=== PATIENT | female | born 1935 | race Caucasian/White ===

== ENCOUNTER 2020-06-04 14:33 | Inpatient (IN) | payer MEDICARE, OTHER ==
[2020-06-04 15:01] LABS: BASO # 0.1 (0.0-0.2); BASO % 0.9 % (0.0-2.0); EOS % 0.4 % (0-4.0); GRAN # 6.9 (1.4-6.5); GRAN % 66.4 % (42.2-75.2); HEMOGLOBIN 14.6 g/dl (12.5-16.0); LYMPH # 2.7 (1.2-3.4); LYMPH % 26.1 % (20.0-51.0); MEAN CELL VOLUME 92 fl (80.0-100.0); MEAN CORPUSCULAR HEMOGLOBIN 30 pg (27.0-31.0); MEAN CORPUSCULAR HGB CONC 33 g/dl (33.0-37.0); MEAN PLATELET VOLUME 10.9 fl (7.4-10.4); MONO # 0.6 (0.1-0.6); MONO % 5.9 % (1.7-9.3); PLATELET COUNT 295 K/mm3 (130-400); RED BLOOD COUNT 4.81 M/mm3 (4.10-5.30); REDCELL DISTRIBUTION WIDTH-CV 13.2 % (11.5-14.5)
[2020-06-04 15:08] LABS: INR 1.1 (0.8-3.0); PROTHROMBIN TIME 11.8 SECONDS (9.7-12.8)
[2020-06-04 15:10] LABS: ALANINE AMINOTRANSFERASE 24 U/L (4-34); ALBUMIN 4.5 gm/dL (3.5-5.0); ALKALINE PHOSPHATASE 91 U/L (50-136); ANION GAP 13 mmol/L (7-16); AST,SGOT 40 U/L (15-37); BILIRUBIN,TOTAL 0.7 mg/dL (0.0-1.0); BLOOD UREA NITROGEN 19 mg/dL (7-17); CALCIUM 10.1 mg/dL (8.4-10.2); CARBON DIOXIDE 21 mmol/L (22-30); CHLORIDE 107 mmol/L (98-107); CREATININE, serum 1.03 (0.52-1.25); GLUCOSE 124 mg/dL (74-106); POTASSIUM 4.3 mmol/L (3.4-5.0); SODIUM 141 mmol/L (137-145); TOTAL PROTEIN 8.4 gm/dL (6.4-8.2)
[2020-06-04 15:23] LABS: TROPONIN-I < 0.012 ng/mL (0.000-0.035)
[2020-06-04 15:36] LABS: COLLECTION METHOD CLEAN CATCH
[2020-06-04 15:42] LABS: MUCOUS Present /lpf; PH 5 (5-8); SQUAMOUS EPITHELIAL 0-2 /hpf; URINE APPEARANCE Hazy; URINE BACTERIA Occasional /hpf; URINE BILIRUBIN Negative (NEGATIVE); URINE BLOOD Negative (NEGATIVE); URINE COLOR Amber; URINE GLUCOSE Negative (NEGATIVE); URINE KETONE 1+ (NEGATIVE); URINE LEUKOCYTE ESTERASE 2+ (NEGATIVE); URINE NITRATE Negative (NEGATIVE); URINE PROTEIN(semi-quant) 1+ (NEGATIVE); URINE UROBILINOGEN Negative (NEGATIVE)
[2020-06-04 21:41] VITALS: BP 124/49; PULSE 76; TEMP 98.1
[2020-06-05 00:19] VITALS: BP 158/80; PULSE 84; TEMP 98.4
[2020-06-05 05:05] VITALS: BP 150/61; PULSE 65; TEMP 98
[2020-06-05 06:00] LABS: CHOLESTEROL RISK RATIO 5.3
[2020-06-05 07:47] VITALS: BP 158/73; PULSE 87; TEMP 98
--- NOTE | 2020-06-05 07:52 | NUR ---
Assessment complete. Patient awake laying in bed at this time. She is plesant and talkative, making jokes. She is alert and oriented. No complaints of pain or discomfort were expressed. Stroke deficits are present in left hand and in minimal facial droop on the left side. Swallow eval was done at this, patient stated "I have been having a tendency to choke", patient was sat up at 90 degree angle and sipped some juice, she tilts her head to the right stating that "it helps make sure she does not choke". Patient did not choke, cough or clear throat while taking small sips. I informed her that she could continue sipping but speech needs to see her before anything else is taken PO, she agreed. Continuing to monitor. Call light is in reach.
[2020-06-05 12:15] VITALS: BP 144/76; PULSE 84; TEMP 98.1
--- NOTE | 2020-06-05 15:08 | NUR ---
Plan-still being assessed. SW met with patient about her care. Patient reports that nursing is excellent. Patient reports that she resides in [place] and is independent living in her own home. Patient shres that her EMR contact is Liya Ott . Patient shares that she sees a DrMarisela At [facility] on [address] and also obtains medications through [facility]. Patient reports that she has not been unhealthy so she has no need for medications and does not take them Patient reports that she is able to drive and has no medical or financial concerns about her care. Will continue to follow. Educated on support services.
[2020-06-05 17:06] VITALS: BP 142/53; PULSE 76; TEMP 98
[2020-06-05 20:36] VITALS: BP 145/85; PULSE 72; TEMP 98.2
[2020-06-06] VITALS (7 sets, daily range): BP systolic 120–156; BP diastolic 61–86; PULSE 51–84; TEMP 97.2–98.5
--- NOTE | 2020-06-06 10:15 | NUR ---
Assessment complete. Patient sitting up in in bed awake and alert and oriented at this time. Family currently at the bedside, they were given an update on testing and that MRI will be tomorrow. Left hand swelling reported by shift mechanic run has dissapated and is no longer present. PAtient also has some movement in her hand that was not present yesterday and although weak, she did have a grasp. Patient is frustrated with her inability to eat solid food despite my reitteration of aspiration risk and the need for speech to thouroghly assess her. Pt will continue with small sips of nectar thick liquids and soft foods like pudding, yogurt and apple sauce. IV site is CD&I, infusing with no issues. No other needs were expressed at this time. Call light is in reach.
--- NOTE | 2020-06-06 17:51 | NUR ---
Patient has had a good shift, she is eager to eat and frustrated with how long she has been waiting. Pudding, yogurt and applesauce were offered patient had some of these through the day as well as thicken liquids, all while take small sips. She id not report any episodes of coughing or choking today. Hand strength in her left hand has imrpoved even more since this morniing, still not equsl to the right, still weak, but shows imrprovement. Pt calls appropriately for assistance to restroom and to recliner. no complaints of pain or discomfort. Fluids continue to infuse with no issues. No other needs at this time. Clal light is in reach.
[2020-06-07 04:11] VITALS: BP 136/73; PULSE 63; TEMP 98
[2020-06-07 06:18] LABS: BASO # 0.1 (0.0-0.2); EOS # 0.2 (0.0-0.7); EOS % 1.8 % (0-4.0); GRAN # 5.3 (1.4-6.5); GRAN % 60.1 % (42.2-75.2); HEMATOCRIT 37.7 % (37.0-47.0); LYMPH # 2.4 (1.2-3.4); LYMPH % 27.3 % (20.0-51.0); MEAN CELL VOLUME 93 fl (80.0-100.0); MEAN CORPUSCULAR HEMOGLOBIN 31 pg (27.0-31.0); MEAN CORPUSCULAR HGB CONC 33 g/dl (33.0-37.0); MEAN PLATELET VOLUME 10.9 fl (7.4-10.4); MONO # 0.8 (0.1-0.6); MONO % 9.6 % (1.7-9.3); PLATELET COUNT 225 K/mm3 (130-400); RED BLOOD COUNT 4.05 M/mm3 (4.10-5.30); REDCELL DISTRIBUTION WIDTH-CV 13.2 % (11.5-14.5)
[2020-06-07 06:28] LABS: CALCIUM 8.9 mg/dL (8.4-10.2); CREATININE, serum 0.74 (0.52-1.25); POTASSIUM 3.7 mmol/L (3.4-5.0)
[2020-06-07 06:31] LABS: HEMOGLOBIN 12.5 g/dl (12.5-16.0)
[2020-06-07 08:11] VITALS: BP 149/69; PULSE 83; TEMP 97.3
--- NOTE | 2020-06-07 08:35 | NUR ---
PT SITTING UP IN BED. PREFORMING AM CARES INDEPENDENTLY WITH SUPERVISION. PLAN ON MRI AND ECHO TODAY. PT HAS LEFT SIDED DEFICITS AND LEFT FACIAL DROOP.
[2020-06-07 12:15] VITALS: BP 153/72; PULSE 80; TEMP 98
--- NOTE | 2020-06-07 13:09 | NUR ---
PT TO MRI AT THIS TIME.
--- NOTE | 2020-06-07 13:53 | NUR ---
PT RETURNED FROM MRI SETTELED TO ROOM.
--- NOTE | 2020-06-07 14:37 | NUR ---
IPR screen put in for patient. Financial Services Technician collaborated with Alison IPR Director who advised she has submitted for insurance authorization.
--- NOTE | 2020-06-07 15:11 | NUR ---
pt down for swallow study with speech.
[2020-06-07 16:39] VITALS: BP 149/57; PULSE 66; TEMP 98
--- NOTE | 2020-06-07 19:23 | NUR ---
Assessment completed and charted. Patient pleasant, A/Ox4. Patient sitting up in the chair and finished her dinner. Patient states she didn't eat all day, so she was pretty hungry. She ate 100% dinner. Patient requested to use bathroom. Assisted patient to the bathroom to void. 1 person moderate assist needed. Minimal facial droop to left side of face noted. Left arm is weak and left hand swollen. Elevated left hand to the pillow. All scheduled meds given. IV fluid running at 75ml/hr via left AC. Left AC IV site has no s/s of complications. Call light within reach. Patient denies any needs at this time.
[2020-06-07 21:18] VITALS: BP 123/60; PULSE 85; TEMP 98.5
[2020-06-07 23:41] VITALS: BP 144/66; PULSE 78; TEMP 98.4
[2020-06-08 04:11] VITALS: BP 133/66; PULSE 78; TEMP 98
--- NOTE | 2020-06-08 06:11 | NUR ---
Patient slept well throughout the night. VS stable. No acute distress noted. Bed-alarms on. Fall precaution maintainted. Call light within reach. Will give report to day shift nurse.
[2020-06-08 07:14] VITALS: BP 111/52; PULSE 68; TEMP 98.8
--- NOTE | 2020-06-08 09:47 | NUR ---
PATIENT UP WITH ASSIST OF ONE. MINIMAL USE OF L ARM OR HAND WITH EDEMA STILL NOTED; PATIENT CAN MOVE IN GENERAL DIRECTIONS HOWEVER THERE IS NO GRASP OR USEFUL MOVEMENT PRESENT. THERE IS STILL SOME DROOPING OF L SIDE OF FACE MATT SPEECH IS CLEAR AND INTELLIGABLE. BLE APPEAR WITHOUT DEFECIT, PATIENT CAN HOLD BOTH IN AIR FOR EQUAL TIME WITHOUT DRIFT. N/C PAIN OR ANY NEEDS VERBALIZED THIS MORNING.
--- NOTE | 2020-06-08 10:41 | NUR ---
Initial visit; Patient very receptive to College President's visit and actually became animated while speaking of her hunt and birds and how much she loves spending time in her back yard with her Humming Birds. Yesica is concerned about how her present health issues will effect her life style and living alone. She and College President shared information and prayer. College President will keep Yesica in her prayers and follow up while patient is here.
[2020-06-08] MEDS ORDERED: PLAVIX 75MG TAB75 MG PO (10:57)
[2020-06-08] MEDS ORDERED: ASPIRIN 81M81 MG/TA2 PO (10:58)
[2020-06-08] MEDS ORDERED: TYLENOL 325MG325 MG PO (10:58)
[2020-06-08] MEDS ORDERED: LIPITOR 80MG80 MG PO (10:58)
--- NOTE | 2020-06-08 11:22 | NUR ---
IVF DISCONTINUED; PT HAS N/C AT THIS TIME.
[2020-06-08 11:25] VITALS: BP 156/66; PULSE 90; TEMP 98.2
[2020-06-08 15:22] VITALS: BP 101/60; PULSE 88; TEMP 98.2
--- NOTE | 2020-06-08 16:53 | NUR ---
PATIENT ALERT AND PLESANT. SITTING IN CHAIR MOST OF SHIFT; UP WITH STANDBY ASSIST. PATIENT IS ANXIOUS TO GET TO REHAB AND HAS BEEN WORKING WITH HER L HAND AND ARM THROUGHOUT THE DAY WITH ROM AND CONTROL EXERCISES. SHE DOES NOT APPEAR DEPRESSED, JUST ANXIOUS TO REGAIN USE OF L ARM/HAND.FACIAL DROOPING STILL NOTICED ON L SIDE FACE, HOWEVER NO DEFECITS NOTED WITH SPEECH OR SWALLOWING.
--- NOTE | 2020-06-08 19:15 | NUR ---
Bedside report received from KULWINDER Barcenas. Patient sitting up in the chair. Denies any needs at this time. Call light within reach.
[2020-06-08 20:01] VITALS: BP 147/90; PULSE 91; TEMP 98.2
--- NOTE | 2020-06-08 23:33 | NUR ---
Patient pleasant, A/O x3. Patient denies any chest pain, SOB/dyspnea, N/V, headache, or dizziness. Patient currently on room air. VS stable. No acute distress noted. Patient reports she has been working hard all day to do exercises her left side of arm. Able to follow command and lift up both arms. Noticed weakness to left arm. Not able to using her left hand to grasp. Left hand still swollen. Elevated left hand on the pillow. Left facial drooping still present. Speech clear and no difficulty eating or drinking. All scheduled meds given per MAY. Call light within reach. Patient denies any needs.
[2020-06-09 00:20] VITALS: BP 130/57; PULSE 82; TEMP 98.3
[2020-06-09 04:43] VITALS: BP 144/64; PULSE 81; TEMP 98
[2020-06-09 07:12] VITALS: BP 146/56; PULSE 80; TEMP 98.3
--- NOTE | 2020-06-09 09:27 | NUR ---
Assessment completed, alert/oriented, vital signs stable, reports some left wrist pain from recent lab draw, some redness and swelling to the site, warm compress place and tylenol given, heart RRR /SR on tele, lungs CTA/ no resp.difficulty noted, left sided facial droop is still noticeable as well as left arm weakness/ these things are slowly improving sence admission, no other neuro deficits noted, notified hospitalist of left wrist pain/ x-ray and ultrasound ordered, plans for patient to transfer to [facility] today, she is up in the chair at this time, refused breakfast, call light in reach, will continue to monitor
--- NOTE | 2020-06-09 09:46 | NUR ---
Follow-up visit; Patient experiencing pain in her wrist this morning but is looking forward to being moved to [facility] today. offered a blessing for Yescia which pleased her and will continue to look in on her.
--- NOTE | 2020-06-09 11:10 | NUR ---
Transfer orders received for patient to go to [facility], I have called and given report to receiving nurse KULWINDER Wooten, IV and tele removed, patient is going down to IPR by wheelchair, Xray left wrist done prior to transfer/ Negative for any acute findings
[2020-06-09 11:12] VITALS: BP 146/56; PULSE 80; TEMP 98.3
--- NOTE | 2020-06-09 11:37 | NUR ---
Patient discharged to [facility] today.
[2020-06-09] MEDS ORDERED: CALCIUM CARBON650 M2 PO (12:48)
[2020-06-09] MEDS ORDERED: CHLOR-TABS4 MG PO (12:48)
[2020-06-09] MEDS ORDERED: MULTIPLE VITAMI1 TA5 PO (12:50)
== END 2020-06-09 11:14 | DRG 65 ==
LOC: COL.ER 14:33 → MEDICAL 17:12
PROVIDERS: Emergency Medicine; Physician Assistant; Psychiatry & Neurology Neurology; ADMIT Student in an Organized Health Care Education/Training Program
DX: I63.511 Cerebral infarction due to unspecified occlusion or stenosis of right middle cerebral artery (principal); N39.0 Urinary tract infection, site not specified; G81.94 Hemiplegia, unspecified affecting left nondominant side; I10 Essential (primary) hypertension; R13.10 Dysphagia, unspecified; R29.810 Facial weakness; I49.3 Ventricular premature depolarization; M19.032 Primary osteoarthritis, left wrist; J30.9 Allergic rhinitis, unspecified
CPT/HCPCS: 99223-AI; 99232-AI; 99233-AI; 99239; A9585; G0378; J0696; J1650; J7030

== ENCOUNTER 2020-06-09 08:14 | Inpatient (IN) | payer MEDICARE, OTHER ==
[~2020-06-09] VITALS: Ht 167.6 cm; Wt 61.1 kg
[~2020-06-09 08:14] MED LIST: ASPIRIN 81M81 MG/TA2 PO; LIPITOR 80MG80 MG PO; PLAVIX 75MG TAB75 MG PO; TYLENOL 325MG325 MG PO
--- NOTE | 2020-06-09 11:15 | NUR ---
arrived per WC from medical unit, physical therapy in to work with patient
--- NOTE | 2020-06-09 12:45 | NUR ---
back in room from therapy and sitting up in chair visiting with her son, has definite left sided weakness as supervisory forester on left is weak and she can left left arm but has a slight drift, have not assessed lower extremities, lunch was order and delivered, will continue assessment after lunch
[2020-06-09] MEDS ORDERED: CHLOR-TABS4 MG PO (12:48)
[2020-06-09] MEDS ORDERED: CALCIUM CARBON650 M2 PO (12:48)
[2020-06-09] MEDS ORDERED: MULTIPLE VITAMI1 TA5 PO (12:50)
--- NOTE | 2020-06-09 13:10 | NUR ---
Dr Killian was in to see patient, occupational therapy now in to work with patient
--- NOTE | 2020-06-09 15:13 | NUR ---
resting in recliner after having shower and therapy with occupatinal therapist, admission assessment completed, she is alert and oriented, left lower extremity is WNL, denies needs at this time
[2020-06-09 15:16] VITALS: BP 116/59; PULSE 74; TEMP 97.9
--- NOTE | 2020-06-09 15:43 | NUR ---
Degreasing Solution Reclaimer contacted the patient's daughter, Liya to set up family meeting for Sunday, 06/16 at 1330. Liya was in agreeance to at 1330 meeting. However, the attendee and visitor is Liya's , Kash. She would like to be on speaker phone as well. The patient does not have a PCP. SW contacted [facility] at to set up a provider. The nurse has to contact the patient prior to acceptance. SW provided the patient's contact information. Awaiting response.
--- NOTE | 2020-06-09 16:00 | NUR ---
speech therapy in to work with patient
[2020-06-09 17:31] VITALS: BP 138/66
--- NOTE | 2020-06-09 17:31 | NUR ---
resting in chair, offered to assist her with calling for supper and she declines, only wants applesauce and crackers later, denies other needs
--- NOTE | 2020-06-09 20:00 | NUR ---
PT RESTING IN BED. PLEASANT AND COOPERATIVE. LT SIDED WEAKNESS NOTED. LT WRIST PAINFUL WITH MOVEMENT. LUE VERY WEAK. LT MOUTH DROOP. HAS DIFFICULTY WITH TAKING PO PILLS. HAD TO CRUSH PILL IN APPLESAUCE. DENIES NEED FOR TYLENOL. LUE UP ON PILLOW. CALL LIGHT IN REACH.
[2020-06-10 03:41] VITALS: BP 136/76; PULSE 80; TEMP 98
--- NOTE | 2020-06-10 09:54 | NUR ---
PT RESTING IN RECLINER AT REPORT. PT REPORTS PAIN IN LEFT WRIST WHEN MOVING, TOOK PRN APAP PRIOR TO THERAPY. PT REPORTS BAD ALLERGIES THIS AM WELL AND HAS SCHEDULED MEDICATIONS FOR THIS.
--- NOTE | 2020-06-10 10:21 | NUR ---
Follow-up visit; Patient transferred to [facility] and says she is still experiencing pain but we pray for better days. Polisher Numeral continues to offer God's blessings.
--- NOTE | 2020-06-10 12:15 | NUR ---
Linn from [facility] contacted this Rn Military regarding acceptance to a PCP. Linn reports that Dr. Jc has accepted the patient as her PCP. MARIA DOLORES to receive new patient packet via fax for the patient to complete. MARIA DOLORES faxed clinical information to Linn, fax # .
--- NOTE | 2020-06-10 14:22 | NUR ---
The patient is new to [facility]. Solidworks Mechanical Designer met with the patient to complete intake. The patient lives alone in [place]. The patient has a cane but does not use it for amublation. The patient is now set up with Dr. Jc. Per EMR the patient receives medications from [facility]. The patient does not have advanced directives. SW completed the new patient registration packet with the patient. MARIA DOLORES then faxed it the the [facility]. There are no additional needs at this time.
[2020-06-10 15:35] VITALS: BP 127/71; PULSE 87; TEMP 97.4
--- NOTE | 2020-06-10 20:05 | NUR ---
PT REPORTED PAIN TO LEFT WRIST WAS MUCH BETTER TODAY THEN IT HAD BEEN THIS MORNING AND PREVIOUSLY. PT CONTINUES TO HAVE TROUBLE SWALLOWING PILLS THAT WERE CRUSHED AND PUT IN APPLESAUCE. ST WAS NOTIFIED AND ASKED THAT WE TRY THE NEXT PILLS WHOLE IN APPLESAUCE. PT'S INTAKE IS VERY POOR B/C SHE COUGHS WHEN DRINKING FLUIDS. EDUCATED PT THAT SHE NEEDS TO CONTINUE TO TRY B/C SHE WILL HAVE OTHER ISSUES IF GETS DEHYDRATED.
--- NOTE | 2020-06-10 21:00 | NUR ---
PT SITTING UP IN RECLINER. PLEASANT AND ORIENTED. ALITTLE FORGETFUL AT TIMES.DENIES PAIN. LT ARM UP ON PILLOW FOR SUPPORT. PT REPORTS LT WRIST MUCH BETTER TODAY. LUE VERY WEAK BUT ABLE TO MORE FINGERS. LT DROOP NOTED. SPEECH CLEAR. SPLIT PILL AND TOOK WHOLE IN APPLESAUCE WITH ALITTLE TROUBLE. CHOKED ALITTLE ON H20. NOT READY TO GO TO BED YET. CALL LIGHT IN REACH. CHAIR ALARM ON.
[2020-06-11 05:09] VITALS: BP 143/64; PULSE 76; TEMP 97.6
--- NOTE | 2020-06-11 08:37 | NUR ---
Patient resting in bed, call light in reach and bed alarm set. Patient denies need for tylenol this morning. She is awaiting her first therapy.
--- NOTE | 2020-06-11 10:18 | NUR ---
Follow-up visit; Yesica doing better each day and is determined to get better so she can go home. Show Horse Driver wished her well and offered God's blessings as always.
[2020-06-11 15:56] VITALS: BP 133/72; PULSE 85; TEMP 98.1
--- NOTE | 2020-06-11 20:00 | NUR ---
RECEIVED CHANGE OF SHIFT REPORT FROM DAY SHIFT NURSE.
--- NOTE | 2020-06-11 20:00 | NUR ---
OBSERVED NO FACIAL DROOPING, DENIES CHEST PAIN/SOA/NAUSEA AT THIS TIME. DENIES NUMBNESS/TINGLING TO EXTREMITIES AT THIS TIME. OBSERVED SOME SLIGHT L HAND SWELLING, PATIENT KEEPS LUE ELEVATED ON PILLOWS. BED ALARM ON WHEN IN BED.
--- NOTE | 2020-06-11 20:07 | NUR ---
Patient attended all therapies today. Tolerated diet well. Continues to have difficulty with swallowing liquids, and takes small sips as instructed. She takes pills cut in half with applesauce. Patient was set up for brushing teeth tonight. She was a CGA with walking to the bathroom and back. Patient denied pain at this time. Currently she is resting in bed, call light in reach and bed alarm set. Reported off to night nurse.
[2020-06-12 04:17] VITALS: BP 129/71; PULSE 77; TEMP 98.3
[2020-06-12 18:00] VITALS: BP 136/62; PULSE 82; TEMP 97.3
--- NOTE | 2020-06-12 19:13 | NUR ---
PT REPORTS PAIN IN WRIST WAS OK TODAY, SLIGHT EDEMA NOTED NON PITTING. NAIL CLIPPED AND FILED TODAY. PT NOT TAKING PO FLUIDS IN WELL AT ALL. EACH ROUND ENCOURAGED PT TO KEEP DRINKING AND SHE IS NONCOMPLIANT.
--- NOTE | 2020-06-12 19:25 | NUR ---
RECEIVED CHANGE OF SHIFT REPORT FROM DAY SHIFT NURSE. BED ALARM ON. DENIES ANY NEEDS AT THIS TIME.
--- NOTE | 2020-06-12 19:44 | NUR ---
CONTINUES WITH DECREASED ROM/STRENGTH TO LEFT HAND, LEFT HAND ASSOCIATE BROKER WEAK COMPARED TO RIGHT HAND. DENIES ANY NEEDS OR CONCERNS, DENIES CHEST PAIN/SOA/NAUSEA AT THIS TIME. BED ALARM ON WHEN IN BED.
[2020-06-13 05:23] VITALS: BP 144/70; PULSE 82; TEMP 9738
--- NOTE | 2020-06-13 06:59 | NUR ---
CHANGE OF SHIFT REPORT GIVEN TO DAY SHIFT NURSE, EMERY MIRAMONTES.
[2020-06-13 16:53] VITALS: BP 144/83; PULSE 84; TEMP 97.8
--- NOTE | 2020-06-13 19:11 | NUR ---
RECEIVED CHANGE OF SHIFT REPORT FROM DAY SHIFT NURSE. PATIENT RESTING IN BED WITH BED ALARM ON. REPORTS FEELING TIRED BUT ENJOYED "BEING OUTSIDE". WANTING TO TAKE HS MEDS EARLY INORDER TO GO SLEEP EARLIER TONIGHT.
--- NOTE | 2020-06-13 19:13 | NUR ---
CONTINUES WITH L HAND WEAKNESS AND SWELLING THAT PATIENT SAYS IS IMPROVING AND KEEPING L HAND ELEVATED ON PILLOWS. SPEECH CLEAR. GAIT STEADY
--- NOTE | 2020-06-13 19:34 | NUR ---
OBSERVED L SIDED FACIAL DROOP TO MOUTH MORE WITH C/O FEELING TIRED AT THIS TIME. PATIENT REPORTED SHE HAD SLIGHT MORE CHOKING COMPLAINTS WITH DRINKING LATE THIS AFTERNOON AFTER ALL THE ACTIVITY AND COMPLAINED OF HICCUPS.
[2020-06-14 05:34] VITALS: BP 136/70; PULSE 70; TEMP 98
--- NOTE | 2020-06-14 07:51 | NUR ---
CHANGE OF SHIFT REPORT GIVEN TO DAY SHIFT NURSE, JESSICA MIRAMONTES AND A CAPSTONE ASSEMBLER CARDS AND ANNOUNCEMENTS.
--- NOTE | 2020-06-14 14:32 | NUR ---
Admission QIM scores were reviewed by the team. Code of 3 chosen for oral hygiene was determined by team discussion to be the most usual performance before interventions for this patient during the assessment period. Code of 3 chosen for toilet hygiene was determined by team discussion to be the most usual performance for this patient during the assessment period. Code of 88 chosen for shower/bathe self was determined by team discussion to be the most usual performance for this patient during the assessment period. Code of 3 chosen for lower body dressing was determined by team discussion to be the most usual performance for this patient during the assessment period. Code of 2 chosen for putting on/taking off footwear was determined by team discussion to be the most usual performance for this patient during the assessment period. Code of 4 chosen for lying to sitting on side of bed was determined by team discussion to be the most usual performance for this patient during the assessment period.--Alison aSntana,
--- NOTE | 2020-06-14 14:54 | NUR ---
Follow-up visit; Yesica feeling discouraged today stating her voice isn't working and her hand is useless. She and Instructor Apparel Manufacture talked awhile with Instructor Apparel Manufacture offering empathy, encouragement and God's blessings. Instructor Apparel Manufacture offered prayer to lift Yesica up, to give her hope and strength. Instructor Apparel Manufacture will continue to look in on Yesica.
[2020-06-14 15:24] VITALS: BP 128/56; PULSE 80; TEMP 97.9
--- NOTE | 2020-06-14 17:20 | NUR ---
Patient stand by assist to the bathroom. I did assist her to zip her pants & bottom the jeans. other brink she did all cares herself
--- NOTE | 2020-06-14 19:20 | NUR ---
RECEIVED CHANGE OF SHIFT REPORT FROM DAY SHIFT NURSE.
--- NOTE | 2020-06-14 20:00 | NUR ---
CONTINUES TO ELEVATE L HAND FOR SLIGHT EDEMA. OBSERVED SLIGHTLY MORE MOVEMENT TO L HAND FINGER/HAND. DENIES CHEST PAIN/SOA/NAUSEA AT THIS TIME. DENIES PAIN AT THIS TIME. BED ALARM ON WHEN IN BED.
[2020-06-15 04:47] VITALS: BP 136/60; PULSE 77; TEMP 97.7
--- NOTE | 2020-06-15 07:43 | NUR ---
CHANGE OF SHIFT REPORT GIVEN TO DAY SHIFT NURSE, KATHRYN MIRAMONTES.
--- NOTE | 2020-06-15 08:11 | NUR ---
Patient resting in bed taking her pills whole with applesauce. Patient denies any pain at this time.
--- NOTE | 2020-06-15 15:06 | NUR ---
MARIA DOLORES met with the patient to follow up. The patient states that she is doing just fine and that therapy has been okay. She is hopeful to be able to discharge before [place]. MARIA DOLORES informed her of Dr. Jc accepting her for primary care. The patient states that this is okay. SW to continue to follow.
--- NOTE | 2020-06-15 15:39 | NUR ---
Follow-up visit; Patient thanked Vp Medical for visiting, listening, bringing hunt and a card with a prayer she and [employer] enjoyed together.
[2020-06-15 16:00] VITALS: BP 146/67; PULSE 79; TEMP 98
--- NOTE | 2020-06-15 18:05 | NUR ---
Patient attended all her therapies except her Group Therapy today. Patient was upset that she could not talk with her family on the phone at that time, so refused to go to Group Therapy. Patient was educated on the therapy schedule and let patient know that staff could let her know the night before when all of her sessions would be so that she could schedule family calls around those sessions. She voiced understanding. Patient tolerated diet well this shift. Denies pain or questions at this time.
[2020-06-16 04:59] VITALS: BP 127/59; PULSE 80; TEMP 98.2
--- NOTE | 2020-06-16 05:01 | NUR ---
Patient to the bathroom with one assist. Steady gait. No complaints of pain. Bed alarm on and call light in reach.
--- NOTE | 2020-06-16 14:40 | NUR ---
Follow-up; Patient with PT person but let know she will be here a few more days. wished her well and will look in on her while she is a patient here.
--- NOTE | 2020-06-16 16:30 | NUR ---
SW attended the patient/family conference call. The patient's daughter, Liya, was on speaker phone. Also present was IPR Director, PT, OT, and ST. IPR Director started by explaining the purpose of the meeting. PT/OT/ST then discussed the patient's progress so far and how a d/c date has been set for next Sunday, 06/23, with outpatient PT/OT and possible ST. They also recommend a possible cane. PT/OT discussed the benefits that the OT at [facility] offers. The patient and Liya were agreeable to the d/c plan. The team answered all questions. SW then followed up with the patient and reviewed the IPR Team Conference Note with her. SW contacted the patient's daughter, Liya, to inform how Dr. Jc accepted the patient. Liya was agreeable to this and states that the plan is for the patient to come stay with her and her upon discharge. They live outside of [place]. Liya and her , Kash, report that they would prefer outpatient PT/OT and possible ST all at [facility]. Kash reports that they also already have a cane that the patient can use. SW to schedule therapy appointments and will continue to follow.
[2020-06-16 17:08] VITALS: BP 146/64; PULSE 87; TEMP 97.5
--- NOTE | 2020-06-16 19:32 | NUR ---
RECEIVED CHANGE OF SHIFT REPORT FROM DAY SHIFT NURSE.
--- NOTE | 2020-06-16 19:42 | NUR ---
Patient attended all therapies this shift. She was a contact gaurd assist with transfers this morning and SBA with dressing this shift. She is only a regular diet, but still takes small sips due to difficulty with swallowing. She takes small pills whole with apples and likes large pills cut in half. Patient had spoken with this nurse and requested the following be reported during care plan meeting this afternoon: "She wants everyone to know that she does not want to be a burden on her family. She would like to stay longer and get stronger." This was communicated to staff at meeting. Reported off to night nurse.
--- NOTE | 2020-06-16 20:00 | NUR ---
DENIES CHEST PAIN/SOA/NAUSEA AT THIS TIME. UP WITH GAIT BELT, SBA FROM STAFF WITH AMB. BED ALARM ON WHEN IN BED.
[2020-06-17 05:19] VITALS: BP 107/69; BP 125/69; PULSE 70; TEMP 97.4
--- NOTE | 2020-06-17 07:12 | NUR ---
CHANGE OF SHIFT REPORT GIVEN TO DAY SHIFT NURSE, EMERY MIRAMONTES.
--- NOTE | 2020-06-17 10:15 | NUR ---
Follow-up visit; Patient thanked Slubber Tender for looking in on her and offering God's blessings. Patient and Slubber Tender had a annie visit about Yesica's youth in [facility] and Slubber Tender's youth in [place].
--- NOTE | 2020-06-17 11:33 | NUR ---
MARIA DOLORES contacted [facility] and secured the patient an outpatient PT appointment on 06/28 at 1430, OT on 06/28 at 1530, and ST on 07/13 at 0830. MARIA DOLORES notified the patient's RN of the appointments. MARIA DOLORES will need to fax the patient's d/c orders to [facility], .
--- NOTE | 2020-06-17 17:31 | NUR ---
PT DENIED PAIN TODAY, NO OTHER COMPLAINTS OTHER THEN HOPING TO GET MORE MOBILITY OUT OF LEFT HAND PRIOR TO DISCHARGE NEXT WEEK.
[2020-06-17 18:03] VITALS: BP 124/54; PULSE 77; TEMP 97.8
--- NOTE | 2020-06-17 22:16 | NUR ---
SPUDDER assisted patient in getting ready for bed. Bedtime medication split in half and given in applesauce. Patient reports having a bowel movement this evening. No complaints of pain or nausea. Patient is very happy with the progress she has been making in therapy.
[2020-06-18 05:07] VITALS: BP 117/60; PULSE 71; TEMP 98
--- NOTE | 2020-06-18 06:46 | NUR ---
CHANGE OF SHIFT REPORT GIVEN TO DAY SHIFT NURSE, EMERY MIRAMONTES.
[2020-06-18 18:05] VITALS: BP 120/58; PULSE 78; TEMP 98.4
--- NOTE | 2020-06-18 19:21 | NUR ---
NO COMPLAINTS TODAY, INTERIOR MECHANIC STRENGTH IMPROVING TO LEFT HAND STILL VERY WEAK. PT CONTINUES NOT TO DRINK FLUIDS.
--- NOTE | 2020-06-18 19:24 | NUR ---
Awake,alert, oriented x4, aspiration precautions in place for chronic dysphagia, talking on phone with family at the time, denies needs. Call jimenez w/i reach.
--- NOTE | 2020-06-18 21:34 | NUR ---
Awake, alert, oriented x 4, clear speech, L sided weakness in upper extremity noted, took pm medications w/o difficulty, denies pain, VS stable.
--- NOTE | 2020-06-19 04:56 | NUR ---
Resting quietly, no c/o at this time, ambulates to bathroom with assist, call tony w/i reach.
[2020-06-19 05:22] VITALS: BP 127/62; PULSE 73; TEMP 97.9
--- NOTE | 2020-06-19 09:49 | NUR ---
Patient resting in recliner, call light in reach and working on her puzzle on the computer. Patient denies pain. Does continue to have a runny nose, due to allergies. Patient denies questions.
[2020-06-19] MEDS ORDERED: ZESTRIL 5MG5 MG PO (11:49)
--- NOTE | 2020-06-19 13:15 | NUR ---
Took patient for a walk around the surgical department this morning. Patient was a one CGA with using cane and gait belt. Patient made sure to step with her right foot at the same time she placed her cane down. Patient currently resting in bed, call light in reach and alarm set.
[2020-06-19 15:35] VITALS: BP 123/74; PULSE 76; TEMP 97.5
--- NOTE | 2020-06-19 21:00 | NUR ---
RESTING IN BED. A&O. LT ARM WEAK BUT HAS BETTER MOVEMENT. DENIES PAIN. CALL LIGHT IN REACH. BED ALARM SET. CALL LIGHT IN REACH.
[2020-06-20 05:18] VITALS: BP 120/58; BP 136/67; PULSE 72; PULSE 80; TEMP 98.4
--- NOTE | 2020-06-20 08:16 | NUR ---
Patient is set up for washing herself off this morning and independent with brushing her teeth. Patient in pleasent mood this morning. Denies any pain at this time. Will continue to monitor.
[2020-06-20 15:14] VITALS: BP 140/63; PULSE 85; TEMP 98.3
--- NOTE | 2020-06-20 16:02 | NUR ---
Patient walked this morning with her cane and was a one person CGA. Patient walked down the card and back. She prefers to sit in her wheelchair over sitting in her recliner due to the alarm going off continually when she tries to exercise her legs when sitting in that recliner. Patient refuses her lunch and likes to only eat her breakfast and supper. Patient currently resting in bed, call light in reach and bed alarm set. Will continue to monitor.
--- NOTE | 2020-06-20 21:00 | NUR ---
PT RESTING IN IN BED. A&O. LT SIDED WEAKNESS. MORESO IN LUE. 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 DENIES PAIN. CALL LIGHT IN REACH. BED ALARM SET.
--- NOTE | 2020-06-20 21:10 | NUR ---
PT TAKE HS MED SPLIT IN HALF AND WITH APPLESAUCE. SWALLOWING PRECAUTIONS CONTINUED.
[2020-06-21 04:41] VITALS: BP 117/57; PULSE 74; TEMP 98.9
--- NOTE | 2020-06-21 08:01 | NUR ---
Patient resting in bed. Looking at her tablet. She did not have much appetite for breakfast. Denies pain. Took am medications with applesauce. Ready to start the day with therapy.
--- NOTE | 2020-06-21 10:18 | NUR ---
MARIA DOLORES met with the patient to follow up after the weekend. The patient was lying in bed. She states that she is doing okay and just trying to get some rest before her next therapy session. She states that she has no concerns about discharge on Sunday. SW to continue to follow.
--- NOTE | 2020-06-21 14:35 | NUR ---
Patient resting in bed. She has completed therapy for the day. She is wanting to rest. Will monitor.
[2020-06-21 16:33] VITALS: BP 125/64; PULSE 82; TEMP 98.3
--- NOTE | 2020-06-21 18:45 | NUR ---
Patient resting in bed. Bedside report to Evelia
--- NOTE | 2020-06-21 19:56 | NUR ---
PT AMBULATING IN ROOM, GAIT STEADY. DENIES PAIN OR DISCOMFORT. NO NEEDS AT THIS TIME, CALL LIGHT WITHIN REACH.
--- NOTE | 2020-06-22 04:49 | NUR ---
PT HAS BEEN SLEEPING/RESTING MOST OF THE NIGHT. BEFORE PT WENT TO SLEEP AROUND 2200, PT CALLED FOR A STANDBY ASSIST, DUE TO BEING HER FIRST TIME BEING ABLE TO GET UP BY HERSELF. PT'S GAIT WAS STEADY. PT THEN CHANGED INTO A GOWN AND GOT READY TO GO TO SLEEP. CALL LIGHT WITHIN REACH.
[2020-06-22 05:32] VITALS: BP 137/65; PULSE 77; TEMP 98.6
--- NOTE | 2020-06-22 09:22 | NUR ---
PT ASSISTED WITH ANY NEEDS THIS AM, TOLERATING IND IN ROOM WELL. NO COMPLAINTS, LAST DAYS OF TREATMENTS
--- NOTE | 2020-06-22 13:59 | NUR ---
Follow-up visit; Yesica thanked for stopping by, visiting and offering God's blessings.
--- NOTE | 2020-06-22 14:58 | NUR ---
SW met with the patient and presented and read the IM form outloud to her. The patient verbalized understanding and signed the form. SW provided her with a copy. The patient had no concerns about d/c tomorrow.
[2020-06-22 18:01] VITALS: BP 114/66; PULSE 85; TEMP 98.8
--- NOTE | 2020-06-22 18:56 | NUR ---
NO COMPLAINTS TODAY. PT TOLERATING IND IN ROOM WELL. LAST DAY OF THERAPY.
[2020-06-23 03:42] VITALS: BP 123/69; PULSE 75; TEMP 98.1
--- NOTE | 2020-06-23 05:49 | NUR ---
Patient had no complaints of pain throughout the night. Ambulated independently in her room. No other needs at this time. Call light in reach.
--- NOTE | 2020-06-23 08:47 | NUR ---
The patient is to discharge back home with her daughter today, 06/23, and outpatient PT/OT/ST at [facility]. SW faxed the patient's discharge orders to [facility] and the patient's d/c summary to the patient's insurance, [employer]. No additional needs at this time.
--- NOTE | 2020-06-23 09:08 | NUR ---
Follow-up visit; Patient thanked [employer] Installer for her many visits and kindness. She also spoke of their ability to share their feelings and prayer. [employer] Line Installer offered God's blessings for healing of Yesica's mind, body and spirit.
--- NOTE | 2020-06-23 09:12 | NUR ---
Patient resting in bed, call light in reach and independent in her room. Patient is independent with taking her pills after staff opens up her applesauce. Patient will be discharging home today.
--- NOTE | 2020-06-23 12:51 | NUR ---
Patient Health Summary, Discharge Summary, and Home Meds printed and reviewed with patient. Stressed importance of follow up appointments. Belongings gathered by ARCENIO/Angelica including glasses, cellphone, tablet, chargers x 2 and misc. items. Patient currently waiting for her son to arrive to take her home.
--- NOTE | 2020-06-25 14:33 | NUR ---
Discharge QIM scores were reviewed by the team. Code of 6 chosen for toilet hygiene was determined by team discussion to be the most usual performance for this patient during the assessment period. Code of 6 chosen for toilet transfers was determined by team discussion to be the most usual performance for this patient during the assessment period. Code of 6 chosen for putting on/taking off footwear was determined by team discussion to be the most usual performance for this patient during the assessment period. Code of 6 chosen for sit to stand was determined by team discussion to be the most usual performance for this patient during the assessment period. Code of 6 chosen for walking 10 feet was determined by team discussion to be the most usual performance for this patient during the assessment period. Code of 6 chosen for walking 150 ft was determined by team discussion to be the most usual performance for this patient during the assessment period. Code of 6 chosen for walking 10 feet on uneven surfaces was determined by team discussion to be the most usual performance for this patient during the assessment period.
== END 2020-06-23 13:15 | disposition home or self-care (01) | DRG 57 ==
PROVIDERS: ADMIT Internal Medicine
DX: I69.354 Hemiplegia and hemiparesis following cerebral infarction affecting left non-dominant side (principal); N39.0 Urinary tract infection, site not specified; R13.12 Dysphagia, oropharyngeal phase; I65.29 Occlusion and stenosis of unspecified carotid artery; I49.9 Cardiac arrhythmia, unspecified; I08.0 Rheumatic disorders of both mitral and aortic valves; I69.392 Facial weakness following cerebral infarction; I10 Essential (primary) hypertension; J30.2 Other seasonal allergic rhinitis; M19.032 Primary osteoarthritis, left wrist; Z79.82 Long term (current) use of aspirin
CPT/HCPCS: 99222-AI; 99231-AI; 99232-AI; 99239; J1650

== ENCOUNTER → 2020-07-20 | Outpatient (REF) | payer OTHER ==
[~2020-07-20] MED LIST changes: +CALCIUM CARBON650 M2 PO; +CHLOR-TABS4 MG PO; +MULTIPLE VITAMI1 TA5 PO; +ZESTRIL 5MG5 MG PO
== END ==
LOC: COL.CARD 12:58
DX: I49.3 Ventricular premature depolarization (principal)